=== PATIENT | female | born 1990 | race Caucasian/White ===

== ENCOUNTER 2024-07-31 12:49 | Emergency (ER) | payer MEDICAID ==
[~2024-07-31] VITALS: Ht 165.1 cm; Wt 127.0 kg
[2024-07-31 12:50] VITALS: TEMP 97.7
[2024-07-31 14:57] VITALS: BP 137/90; PULSE 70; RESP 16; O2SAT 98
== END 2024-07-31 14:58 | disposition home or self-care (01) ==
LOC: ER 12:49
DX: S96.812A Strain of other specified muscles and tendons at ankle and foot level, left foot, initial encounter (principal); F17.200 Nicotine dependence, unspecified, uncomplicated; Z88.1 Allergy status to other antibiotic agents; X58.XXXA Exposure to other specified factors, initial encounter; Y93.89 Activity, other specified; Y92.89 Other specified places as the place of occurrence of the external cause; Y99.8 Other external cause status
CPT/HCPCS: 73630; 99283; L3260